=== PATIENT | female | born 1995 | race Caucasian/White ===

== ENCOUNTER 2022-04-17 07:58 | Emergency (ER) | payer MEDICAID, OTHER | END 2022-04-17 08:47 | disposition home or self-care (01) | LOC: JP.ED 07:58 | DX: O20.9 Hemorrhage in early pregnancy, unspecified (principal); Z3A.14 14 weeks gestation of pregnancy; Z88.5 Allergy status to narcotic agent; Z79.899 Other long term (current) drug therapy | CPT/HCPCS: 99283 ==